=== PATIENT | male | born 1970 | race Caucasian/White ===

== ENCOUNTER 2016-09-11 22:14 | Emergency (ER) | payer SELFPAY ==
[~2016-09-11] VITALS: Ht 188 cm; Wt 86.4 kg
[2016-09-11 22:42] VITALS: BP 147/85
== END 2016-09-11 23:21 | disposition home or self-care (01) ==
LOC: EMS 22:30
DX: M20.012 Mallet finger of left finger(s) (principal); F17.210 Nicotine dependence, cigarettes, uncomplicated; X58.XXXA Exposure to other specified factors, initial encounter; Y93.89 Activity, other specified; Y92.89 Other specified places as the place of occurrence of the external cause; Y99.8 Other external cause status
CPT/HCPCS: 99283